=== PATIENT | male | born 1995 | race African-American/Black ===

== ENCOUNTER 2019-06-16 22:59 | Emergency (ER) | payer OTHER ==
[~2019-06-16] VITALS: Ht 193 cm; Wt 80.9 kg
[2019-06-16 23:07] VITALS: Ht 193 cm; Wt 80.9 kg
[2019-06-17 02:03] VITALS: BP 126/68
== END 2019-06-17 02:03 | disposition home or self-care (01) ==
LOC: ED 22:59
DX: N45.1 Epididymitis (principal)
CPT/HCPCS: 87491; 87591; J1885